=== PATIENT | male | born 1960 | race Caucasian/White ===

== ENCOUNTER 2017-09-05 11:26 | Outpatient (CLI) | payer OTHER | END 2017-09-05 17:00 | disposition home or self-care (01) | LOC: RAD 11:26 | DX: K42.9 Umbilical hernia without obstruction or gangrene (principal); Z01.811 Encounter for preprocedural respiratory examination ==

== ENCOUNTER 2017-09-05 12:58 | Outpatient (CLI) | payer OTHER | END 2017-09-05 13:14 | disposition home or self-care (01) | LOC: EKG 12:58 | DX: K42.9 Umbilical hernia without obstruction or gangrene (principal); Z01.810 Encounter for preprocedural cardiovascular examination ==

== ENCOUNTER 2017-09-12 04:43 | Day surgery (SDC) | payer OTHER | END 2017-09-12 16:40 | disposition home or self-care (01) | LOC: CIR.AMB 04:43 | DX: K42.9 Umbilical hernia without obstruction or gangrene (principal) ==

== ENCOUNTER → 2018-03-03 | Emergency (ER) | payer OTHER ==
[~2018-03-03] VITALS: Ht 170.2 cm; Wt 108.9 kg
== END | disposition left against medical advice (07) ==
LOC: ER 16:59
DX: Z53.20 Procedure and treatment not carried out because of patient's decision for unspecified reasons (principal)

== ENCOUNTER 2018-07-30 12:39 | Emergency (ER) | payer OTHER ==
[~2018-07-30] VITALS: Ht 172.7 cm; Wt 108.9 kg
== END 2018-07-30 19:48 | disposition home or self-care (01) ==
LOC: ER 12:39
DX: R20.0 Anesthesia of skin (principal)